=== PATIENT | male | born 1995 | race Caucasian/White ===

== ENCOUNTER 2018-06-19 18:43 | Emergency (ER) | payer MEDICARE, MEDICAID ==
[2018-06-19 19:09] LABS: BASOPHILS 0.3 % (0-2); EOSINOPHILS 5.7 % (0-7); HEMATOCRIT 42.9 % (42.0-54.0); HEMOGLOBIN 14.6 g/dL (13.5-17.5); MCH 29.3 pg (26.0-34.0); MCV 86.1 fL (80.0-100.0); MEAN PLATELET VOLUME 9.1 fL (7.4-10.4); PLATELET COUNT 174 10x3/uL (130-400); RBC 4.98 10x6/uL (4.20-6.10); WBC 7.8 10x3/uL (4.8-10.8)
[2018-06-19] MEDS ORDERED: STRATTERA40 MG (19:23)
[2018-06-19] MEDS ORDERED: DEPAKENE250 MG (19:23)
[2018-06-19] MEDS ORDERED: TRAZODONE HCL150 MG PO (19:24)
[2018-06-19] MEDS ORDERED: ABILIFY2 MG PO (19:24)
[2018-06-19] MEDS ORDERED: PROPRANOLOL HCL20 MG PO (19:24)
[2018-06-19] MEDS ORDERED: DOXEPIN HCL75 MG PO (19:25)
[2018-06-19] MEDS ORDERED: HALDOL5 MG PO (19:25)
[2018-06-19] MEDS ORDERED: PROZAC40 MG PO (19:25)
[2018-06-19] MEDS ORDERED: GLUCOPHAGE500 MG PO (19:25)
[2018-06-19] MEDS ORDERED: SINGULAIR10 MG PO (19:26)
[2018-06-19] MEDS ORDERED: SYMBICORT 16010.2 GM INH (19:26)
[2018-06-19] MEDS ORDERED: OMEPRAZOLE40 MG PO (19:26)
[2018-06-19] MEDS ORDERED: VENTOLIN HFA18 GM INH (19:26)
[2018-06-19 19:27] LABS: APPEARANCE CLEAR (CLEAR); BILIRUBIN NEGATIVE (NEGATIVE); COLOR YELLOW (YELLOW); GLUCOSE NEGATIVE (NEGATIVE); KETONE NEGATIVE (NEGATIVE); NITRITE NEGATIVE (NEGATIVE); PROTEIN NEGATIVE (NEGATIVE); SPECIFIC GRAVITY 1.015 (1.005-1.020); UROBILINOGEN NORMAL (NORMAL)
[2018-06-19 19:35] LABS: ALBUMIN 3.7 g/dL (3.4-5.0); ALKALINE PHOSPHATASE 71 U/L (46-116); ALT (SGPT) 46 U/L (10-68); BILIRUBIN - TOTAL 0.56 mg/dL (0.2-1.3); CALC OSMOLALITY 278 mosm/kg (275-300); CARBON DIOXIDE 28.8 mmol/L (21.0-32.0); CHLORIDE - SERUM 102 mmol/L (98-107); CREATININE - SERUM 0.9 mg/dL (0.6-1.3); GLUCOSE 95 mg/dL (74-106); POTASSIUM - SERUM 3.9 mmol/L (3.5-5.1); PROTEIN - SERUM 7.4 g/dL (6.4-8.2); SODIUM 140 mmol/L (136-145); UREA NITROGEN 12 mg/dL (7-18); eGFR NON AFRICAN AMERICAN > 90 mL/min (90-120)
[2018-06-19 19:44] LABS: UDS - AMPHET NEGATIVE QUAL (NEGATIVE); UDS - BARB NEGATIVE QUAL (NEGATIVE); UDS - BENZO NEGATIVE QUAL (NEGATIVE); UDS - COCAINE NEGATIVE QUAL (NEGATIVE); UDS - OPIATE NEGATIVE QUAL (NEGATIVE); UDS - PCP NEGATIVE QUAL (NEGATIVE); UDS - THC NEGATIVE QUAL (NEGATIVE)
[2018-06-19 22:17] VITALS: BP 132/78
== END 2018-06-19 22:15 | disposition home or self-care (01) ==
LOC: D.ER 18:43 → EDBD 18:43 → D.ER 22:15
PROVIDERS: Emergency Medicine
DX: F31.9 Bipolar disorder, unspecified (principal); F91.3 Oppositional defiant disorder; F20.9 Schizophrenia, unspecified; Y04.2XXA Assault by strike against or bumped into by another person, initial encounter; Y93.89 Activity, other specified; Y92.019 Unspecified place in single-family (private) house as the place of occurrence of the external cause

== ENCOUNTER 2018-06-21 13:15 | Emergency (ER) | payer MEDICARE, MEDICAID ==
[~2018-06-21] VITALS: Ht 167.6 cm; Wt 86.4 kg
[~2018-06-21 13:15] MED LIST: ABILIFY2 MG PO; DEPAKENE250 MG; DOXEPIN HCL75 MG PO; GLUCOPHAGE500 MG PO; HALDOL5 MG PO; OMEPRAZOLE40 MG PO; PROPRANOLOL HCL20 MG PO; PROZAC40 MG PO; SINGULAIR10 MG PO; STRATTERA40 MG; SYMBICORT 16010.2 GM INH; TRAZODONE HCL150 MG PO; VENTOLIN HFA18 GM INH
[2018-06-21 13:51] VITALS: Ht 167.6 cm; Wt 86.4 kg
[2018-06-21 14:26] LABS: BASOPHILS 0.3 % (0-2); EOSINOPHILS 7.3 % (0-7); HEMATOCRIT 42.7 % (42.0-54.0); HEMOGLOBIN 14.5 g/dL (13.5-17.5); LYMPHOCYTES 36.3 % (15-50); MCH 29.3 pg (26.0-34.0); MCV 86.3 fL (80.0-100.0); MONOCYTES 9.4 % (2-11); NEUTROPHILS 46.7 % (40-80); PLATELET COUNT 175 10x3/uL (130-400); RBC 4.95 10x6/uL (4.20-6.10); WBC 5.9 10x3/uL (4.8-10.8)
[2018-06-21 14:26] LABS: APPEARANCE CLEAR (CLEAR); BILIRUBIN NEGATIVE (NEGATIVE); COLOR YELLOW (YELLOW); GLUCOSE NEGATIVE (NEGATIVE); KETONE NEGATIVE (NEGATIVE); NITRITE NEGATIVE (NEGATIVE); PROTEIN NEGATIVE (NEGATIVE); SPECIFIC GRAVITY 1.015 (1.005-1.020)
[2018-06-21 14:36] LABS: UDS - AMPHET NEGATIVE QUAL (NEGATIVE); UDS - BARB NEGATIVE QUAL (NEGATIVE); UDS - BENZO NEGATIVE QUAL (NEGATIVE); UDS - COCAINE NEGATIVE QUAL (NEGATIVE); UDS - OPIATE NEGATIVE QUAL (NEGATIVE); UDS - PCP NEGATIVE QUAL (NEGATIVE); UDS - THC NEGATIVE QUAL (NEGATIVE)
[2018-06-21 14:41] LABS: ALBUMIN 3.4 g/dL (3.4-5.0); ALKALINE PHOSPHATASE 70 U/L (46-116); ALT (SGPT) 43 U/L (10-68); CALC OSMOLALITY 280 mosm/kg (275-300); CALCIUM 8.4 mg/dL (8.5-10.1); CARBON DIOXIDE 27.1 mmol/L (21.0-32.0); CHLORIDE - SERUM 104 mmol/L (98-107); CREATININE - SERUM 0.8 mg/dL (0.6-1.3); GLUCOSE 123 mg/dL (74-106); MAGNESIUM - SERUM 1.6 mg/dL (1.8-2.4); POTASSIUM - SERUM 3.8 mmol/L (3.5-5.1); PROTEIN - SERUM 6.9 g/dL (6.4-8.2); SODIUM 141 mmol/L (136-145); UREA NITROGEN 11 mg/dL (7-18); eGFR NON AFRICAN AMERICAN > 90 mL/min (90-120)
[2018-06-22 00:21] VITALS: BP 123/78
== END 2018-06-22 00:22 ==
LOC: D.ER 13:15
PROVIDERS: Emergency Medicine
DX: F79 Unspecified intellectual disabilities (principal); R45.850 Homicidal ideations; F63.9 Impulse disorder, unspecified; F63.81 Intermittent explosive disorder; R45.851 Suicidal ideations